=== PATIENT | male | born 1960 | race Hispanic/Latino ===

== ENCOUNTER 2019-09-07 14:13 | Inpatient (IN) | payer OTHER ==
--- NOTE | 2019-09-07 15:23 | ER ---
Nurse's Notes [facility] Name: Chuck Gregorio Age: 58 yrs Sex: Male : 1960 Arrival Date: 09/07/2019 Time: 14:18 Bed 19 Private MD: Diagnosis: SARS-associated coronavirus as the cause of diseases classified elsewhere Presentation: 09/06 14:32 Chief complaint: Patient states: SOB x 3 days. Tested positive for COVID-19 on ss Monday. Pt states, "I have no other symptoms than just SOB.". Coronavirus screen: Client presents with at least one sign or symptom that may indicate coronavirus-19. Client reports previous positive COVID test result. Ebola Screen: Patient denies exposure to infectious person. Patient denies travel to an Ebola-affected area in the 21 days before illness onset. Initial Sepsis Screen: Does the patient meet any 2 criteria? RR > 20 per min. HR > 90 bpm. Does the patient have a suspected source of infection? Yes: Productive cough/pneumonia. Risk Assessment: Do you want to hurt yourself or someone else? Patient reports no desire to harm self or others. Onset of symptoms was September 04, 2019. 14:32 Method Of Arrival: Ambulatory ss 14:32 Acuity: KIERRA 3 ss Historical: - Allergies: 14:34 No Known Allergies; ss - Immunization history:: Adult Immunizations up to date. - Social history:: Smoking status: Patient denies any tobacco usage or history of. Screenin:49 Abuse screen: Denies threats or abuse. Nutritional screening: No deficits noted. Tuberculosis screening: No symptoms or risk factors identified. Fall Risk None identified. Assessment: 15:50 General: Appears uncomfortable, Behavior is calm, cooperative, appropriate for age. Pain: Denies pain. Neuro: Level of Consciousness is awake, alert, obeys commands, Oriented to person, place, time, situation, Appropriate for age. Cardiovascular: Heart tones S1 S2 present Capillary refill < 3 seconds Patient's skin is warm and dry. Pulses are palpable in right radial artery and left radial artery Rhythm is sinus tachycardia. Respiratory: Reports shortness of breath on exertion cough that is productive, Airway is patent Respiratory effort is even, unlabored, Respiratory pattern is regular, tachypnea. GI: Patient currently denies nausea, vomiting. Derm: Skin is intact, is healthy with good turgor, Skin is dry. 15:55 Reassessment: Critical value received from lab: D-Dimer [id number], reported to . 16:38 Reassessment: Pt returned from radiology. 16:56 Reassessment: Attempted to call report, nurse is busy and will call back. 17:26 Reassessment: Report called to JESSE Peñaloza on 4th floor. Vital Signs: 14:32 BP 140 / 76; Pulse 108; Resp 22; Temp 97.5(O); Pulse Ox 92% on R/A; Weight 99.34 kg; Height 5 ft. 9 in. (175.26 cm); Pain 0/10; 15:30 BP 142 / 83; Pulse 114; Resp 23; Temp 101.9; Pulse Ox 97% ; ah 16:36 BP 145 / 81; Pulse 115; Resp 17; Pulse Ox 92% ; ah 17:29 BP 118 / 80; Pulse 105; Resp 20; Temp 100.3; Pulse Ox 93% ; 14:32 Body Mass Index 32.34 (99.34 kg, 175.26 cm) ED Course: 14:18 Patient arrived in ED. fj1 14:21 Tong Mckinley MD is Attending Physician. kdr 14:34 Triage completed. 14:34 Arm band placed on right wrist. 14:49 Melissa Paula, RN is Primary Nurse. 14:49 Patient has correct armband on for positive identification. Bed in low position. Call light in reach. Pulse ox on. NIBP on. 15:21 Lucio Hood DO is Hospitalizing Provider. kdr 15:25 Initial lab(s) drawn, by me, sent to lab. First set of blood cultures drawn by me, Flu ah and/or RSV swab sent to lab. Strep swab sent to lab. Inserted saline lock: 20 gauge in right antecubital area, using aseptic technique. 15:52 CXR XRAY In Process Unspecified. EDMS 16:25 Second set of blood cultures drawn by ny, EKG done, by ED staff, reviewed by Tong Mckinley MD. 17:32 No provider procedures requiring assistance completed. Patient admitted, IV remains in place. Administered Medications: 15:45 Drug: NS 0.9% 500 ml Route: IV; Rate: bolus; Site: right antecubital; 16:36 Follow up: Response: No adverse reaction; IV Status: Completed infusion 15:45 Drug: Decadron - Dexamethasone 6 mg Route: IVP; Site: right antecubital; 16:36 Follow up: Response: No adverse reaction 15:45 Drug: Tylenol 1000 mg Route: PO; 17:28 Follow up: Response: No adverse reaction; Temperature is decreased 16:10 Drug: Lovenox 1 mg/kg Route: Sub-Q; Site: left lower abdomen; 17:29 Follow up: Response: No adverse reaction Outcome: 15:22 Decision to Hospitalize by Provider. kdr 17:32 Admitted to Tele accompanied by tech, room 420, with chart, Report called to JESSE Peñaloza 17:32 Condition: stable 17:32 Instructed on the need for admit. 18:07 Patient left the ED. Signatures: Dispatcher [employer] EDTong Goodwin MD MD kdr Smirch, Shelby, Xavier Durán RN fj Melissa Paula, RN RN
--- NOTE | 2019-09-07 15:23 | EDPHYS ---
Physician Documentation [facility] Name: Chuck Gregorio Age: 58 yrs Sex: Male : 1960 Arrival Date: 09/07/2019 Time: 14:18 Bed 19 Private MD: ED Physician Tong Mckinley HPI: 09/06 15:22 This 58 yrs old Male presents to ER via Ambulatory with complaints of COVID+, kdr WORSENING SYMP. 15:22 The patient or guardian reports cough, that is intermittent, described as mild, with kdr productive sputum, that is white, difficulty breathing. Onset: The symptoms/episode began/occurred gradually, 3 day(s) ago. Severity of symptoms: At their worst the symptoms were mild, just prior to arrival, moderate, in the emergency department the symptoms are unchanged. Modifying factors: The symptoms are alleviated by Rest the symptoms are aggravated by exertion, talking. Associated signs and symptoms: Pertinent positives: fever, Pertinent negatives: chest pain, diarrhea, ear ache, nausea, rhinorrhea, sore throat, vomiting. The patient has not experienced similar symptoms in the past. The patient has been recently seen by a physician: Tested positive for COVID on Monday. Historical: - Allergies: 14:34 No Known Allergies; ss - Immunization history:: Adult Immunizations up to date. - Social history:: Smoking status: Patient denies any tobacco usage or history of. ROS: 15:22 Constitutional: Negative for fever, chills, and weight loss, Eyes: Negative for injury, kdr pain, redness, and discharge, ENT: Negative for injury, pain, and discharge, Neck: Negative for injury, pain, and swelling, Cardiovascular: Negative for chest pain, palpitations, and edema, Abdomen/GI: Negative for abdominal pain, nausea, vomiting, diarrhea, and constipation, Back: Negative for injury and pain, : Negative for injury, bleeding, discharge, and swelling, MS/Extremity: Negative for injury and deformity, Skin: Negative for injury, rash, and discoloration, Neuro: Negative for headache, weakness, numbness, tingling, and seizure activity. Psych: Negative for depression, anxiety, suicide ideation, homicidal ideation, and hallucinations, Allergy/Immunology: Negative for hives, rash, and allergies, Endocrine: Negative for neck swelling, polydipsia, polyuria, polyphagia, and marked weight changes, Hematologic/Lymphatic: Negative for swollen nodes, abnormal bleeding, and unusual bruising. 15:22 Respiratory: Positive for cough, with white sputum, dyspnea on exertion, shortness of breath, Negative for hemoptysis, orthopnea, pleurisy, wheezing. Exam: 15:22 Constitutional: This is a well developed, well nourished patient who is awake, alert, kdr and in no acute distress. Head/Face: Normocephalic, atraumatic. Eyes: Pupils equal round and reactive to light, extra-ocular motions intact. Lids and lashes normal. Conjunctiva and sclera are non-icteric and not injected. Cornea within normal limits. Periorbital areas with no swelling, redness, or edema. Neck: Trachea midline, no thyromegaly or masses palpated, and no cervical lymphadenopathy. Supple, full range of motion without nuchal rigidity, or vertebral point tenderness. No Meningismus. Chest/axilla: Normal chest wall appearance and motion. Nontender with no deformity. No lesions are appreciated. Cardiovascular: Regular rate and rhythm with a normal S1 and S2. No gallops, murmurs, or rubs. Normal PMI, no JVD. No pulse deficits. Respiratory: Lungs have equal breath sounds bilaterally, clear to auscultation and percussion. No rales, rhonchi or wheezes noted. No increased work of breathing, no retractions or nasal flaring. Abdomen/GI: Soft, non-tender, with normal bowel sounds. No distension or tympany. No guarding or rebound. No evidence of tenderness throughout. Back: No spinal tenderness. No costovertebral tenderness. Full range of motion. Skin: Warm, dry with normal turgor. Normal color with no rashes, no lesions, and no evidence of cellulitis. MS/ Extremity: Pulses equal, no cyanosis. Neurovascular intact. Full, normal range of motion. Neuro: Awake and alert, GCS 15, oriented to person, place, time, and situation. Cranial nerves II-XII grossly intact. Motor strength 5/5 in all extremities. Sensory grossly intact. Cerebellar exam normal. Normal gait. Psych: Awake, alert, with orientation to person, place and time. Behavior, mood, and affect are within normal limits. 16:36 ECG was reviewed by the Attending Physician. kdr Vital Signs: 14:32 BP 140 / 76; Pulse 108; Resp 22; Temp 97.5(O); Pulse Ox 92% on R/A; Weight 99.34 kg; ss Height 5 ft. 9 in. (175.26 cm); Pain 0/10; 15:30 BP 142 / 83; Pulse 114; Resp 23; Temp 101.9; Pulse Ox 97% ; ah 16:36 BP 145 / 81; Pulse 115; Resp 17; Pulse Ox 92% ; ah 17:29 BP 118 / 80; Pulse 105; Resp 20; Temp 100.3; Pulse Ox 93% ; ah 14:32 Body Mass Index 32.34 (99.34 kg, 175.26 cm) ss MDM: 15:22 Patient medically screened. kdr 15:22 Data reviewed: vital signs, nurses notes, lab test result(s), radiologic studies. kdr Counseling: I had a detailed discussion with the patient and/or guardian regarding: the historical points, exam findings, and any diagnostic results supporting the discharge/admit diagnosis, lab results, radiology results, the need for further work-up and treatment in the hospital. Physician consultation: Lucio Hood DO was called at 15:27, was contacted at 15:27, regarding admission, patient's condition, and will see patient in ED, immediately. 09/06 15:17 Order name: Blood Culture Adult (2) kdr 09/06 15:17 Order name: BMP; Complete Time: 16:25 kdr 09/06 15:17 Order name: C-Reactive Protein; Complete Time: 16:25 kdr 09/06 15:17 Order name: CBC with Diff; Complete Time: 16:25 kdr 09/06 15:17 Order name: COVID-19 kdr 09/06 15:17 Order name: D-Dimer; Complete Time: 16:25 kdr 09/06 15:17 Order name: Ferritin; Complete Time: 16:25 kdr 09/06 15:17 Order name: Flu; Complete Time: 16:25 kdr 09/06 15:17 Order name: Lactate; Complete Time: 16:25 kdr 09/06 15:17 Order name: LFT's; Complete Time: 16:25 kdr 09/06 15:17 Order name: Lipase; Complete Time: 16:25 kdr 09/06 15:17 Order name: Procalcitonin; Complete Time: 17:14 kdr 09/06 15:17 Order name: PT-INR; Complete Time: 16:25 kdr 09/06 15:17 Order name: Ptt, Activated; Complete Time: 16:25 kdr 09/06 14:56 Order name: Pulse Ox Sat: Ambulate patient around room while monitoring POx; Complete kdr Time: 15:48 09/06 15:17 Order name: Strep; Complete Time: 16:25 kdr 09/06 15:17 Order name: Troponin (emerg Dept Use Only); Complete Time: 16:25 kdr 09/06 15:17 Order name: CXR XRAY kdr 09/06 15:17 Order name: EKG; Complete Time: 15:18 kdr 09/06 15:17 Order name: Cardiac monitoring; Complete Time: 15:48 kdr 09/06 15:57 Order name: Chest For PE Angio CT [facility] 09/06 16:08 Order name: Throat Culture [facility] 09/06 16:54 Order name: Urine Dipstick--Ancillary (enter results) 09/06 17:05 Order name: Urine Dipstick-Ancillary; Complete Time: 17:14 [facility] 09/06 17:18 Order name: CT [facility] 09/06 15:17 Order name: Droplet/Contact Precautions; Complete Time: 15:48 kdr 09/06 15:17 Order name: EKG - Nurse/Tech; Complete Time: 16:52 [facility] 09/06 15:17 Order name: IV Start; Complete Time: 15:48 [facility] 09/06 15:17 Order name: Labs collected and sent; Complete Time: 15:48 [facility] 09/06 15:17 Order name: O2 Per Protocol; Complete Time: 15:48 [facility] 09/06 15:17 Order name: Urine Dipstick-Ancillary (obtain specimen); Complete Time: 16:52 kdr EC:36 Rate is 114 beats/min. Rhythm is regular, Sinus tachycardia with No ectopy. QRS [place] is kdr Normal. [place] interval is normal. QRS interval is normal. QT interval is normal. Clinical impression: Sinus tachycardia. Administered Medications: 15:45 Drug: NS 0.9% 500 ml Route: IV; Rate: bolus; Site: right antecubital; 16:36 Follow up: Response: No adverse reaction; IV Status: Completed infusion ah 15:45 Drug: Decadron - Dexamethasone 6 mg Route: IVP; Site: right antecubital; 16:36 Follow up: Response: No adverse reaction 15:45 Drug: Tylenol 1000 mg Route: PO; 17:28 Follow up: Response: No adverse reaction; Temperature is decreased 16:10 Drug: Lovenox 1 mg/kg Route: Sub-Q; Site: left lower abdomen; 17:29 Follow up: Response: No adverse reaction Disposition: 09/07/19 15:22 Hospitalization ordered by Lucio Hood for Observation. Preliminary diagnosis is SARS-associated coronavirus as the cause of diseases classified elsewhere. - Bed requested for Telemetry/MedSurg (observation). - Status is Observation. - Condition is Fair. - Problem is an ongoing problem. - Symptoms are unchanged. Signatures: Dispatcher [employer] Letty Liao RN RN Tong Mckinley MD MD [facility] Lakeshia Casas RN RN Melissa Paula RN RN Corrections: (The following items were deleted from the chart) 15:59 15:17 Notify Health Dept [phone]/ ordered. [facility] 16:22 15:22 Hospitalization Ordered by Lucio Hood DO for Observation. Preliminary diagnosis is SARS-associated coronavirus as the cause of diseases classified elsewhere. Bed requested for Telemetry/MedSurg (observation). Status is Observation. Condition is Fair. Problem is an ongoing problem. Symptoms are unchanged. [facility] 16:37 15:17 Document PUI# ordered. [facility] 18:07 16:22 09/07/2019 15:22 Hospitalization Ordered by Lucio Hood DO for Observation. Preliminary diagnosis is SARS-associated coronavirus as the cause of diseases classified elsewhere. Bed requested for Telemetry/MedSurg (observation). Status is Observation. Condition is Fair. Problem is an ongoing problem. Symptoms are unchanged. dw
[2019-09-07] MEDS ORDERED: dexAMETHasone 10 MG/ML VIAL ONE (15:33)
[2019-09-07] MEDS ORDERED: NA CHLORIDE 0.9% 500 ML ONE (15:33)
[2019-09-07] MEDS ORDERED: ACETAMINOPHEN 500 MG TAB ONE (15:47)
[2019-09-07 15:49] LABS: Basophils % 1.3 % (0-1.3); Hematocrit 41.6 % (39.6-49.0); Lymphocytes % 10.8 % (15.3-44.8); MPV 7.1 fL (7.6-11.3); RBC Red Blood Cell Count 4.84 M/uL (4.33-5.43)
[2019-09-07 15:51] LABS: Protime INR 1.31
[2019-09-07] MEDS ORDERED: ENOXAPARIN 100 MG/ML SYR SQ ONE (16:09)
[2019-09-07 16:11] LABS: ALT/SGPT 71 U/L (12-78); AST/SGOT 58 U/L (15-37); Albumin 2.8 g/dL (3.4-5.0); Alkaline Phosphatase 77 U/L (45-117); BUN Blood Urea Nitrogen 14 mg/dL (7-18); Bicarbonate 30 mmol/L (21-32); Bilirubin Direct 0.2 mg/dL (0-0.2); Bilirubin Total 0.4 mg/dL (0.2-1.0); Ferritin 907.9 ng/mL (26-388); Glucose Level 115 mg/dL (74-106); Lipase 154 U/L (73-393); Potassium 3.3 mmol/L (3.5-5.1); Protein, Total 7.7 g/dL (6.4-8.2); Sodium Level 139 mmol/L (136-145); Troponin (Emerg Dept Use Only) < 0.02 ng/mL (0.0-0.045)
[2019-09-07 17:05] LABS: Urine Blood NEGATIVE (NEG); Urine Glucose NEGATIVE (NEG); Urine Protein 2+ (NEG); Urine Specific Gravity 1.015 (1.005-1.030)
--- NOTE | 2019-09-07 17:11 | P.HP ---
Certification for Inpatient Patient admitted to: Observation With expected LOS: <2 Midnights Patient will require the following post-hospital care: None Practitioner: I am a practitioner with admitting privileges, knowledge of patient current condition, hospital course, and medical plan of care. Services: Services provided to patient in accordance with Admission requirements found in Title 42 Section 412.3 of the Code of Federal Regulations Patient History Date of Service: 09/07/19 Primary Care Provider: [place] Reason for admission: Shortness of breath History of Present Illness: 58-year-old male with history of hypertension presented to the emergency room with increasing shortness of breath. Patient was diagnosed with COVID 19 this past Monday. Patient had reported some sore throat. He also reported a severe headache. He had gone to a urgent care clinic in [place]. He got results testing positive. Over the last day he has been having increasing shortness of breath. Patient also reports no subjective fever. He denies any nausea, vomiting, diarrhea or constipation. Only sick contacts has primarily been his coworkers. He travels a great deal from [facility]. He currently works in the local area. He has been practicing social distancing and wears masks. No family member has been test positive. Several coworkers have tested positive for COVID. He came to the ER due to worsening symptoms. In the ER patient was found to be tachycardic and tachypneic. Room-air satura tions 94% but decreased to around 80% with exertion. Patient was given IV Decadron and IV fluid in the emergency room. Chest x-ray revealed bilateral pneumonia suspicious for COVID 19. Patient admitted for further evaluation and treatment. When I saw the patient ER, patient appeared slightly tachypneic and tachycardic. Patient reports slight improvement with treatment in the emergency room. Patient does not appear septic at this time. Home medications list reviewed: Yes - Past Medical/Surgical History Diabetic: No -: Hypertension -: Cholecystectomy Psychosocial/ Personal History: Patient lives in [facility] but works locally - Family History Family History: Reviewed- Non-Contributory - Social History Smoking Status: Never smoker Alcohol use: No CD- Drugs: No Caffeine use: Yes Place of Residence: Home Review of Systems General: Weakness, As per HPI Eyes: Unremarkable ENT: Nose Congestion, Throat Pain, As per HPI Respiratory: Shortness of Breath, SOB with Excertion, As per HPI Cardiovascular: Unremarkable Gastrointestinal: Unremarkable Genitourinary: Unremarkable Musculoskeletal: Unremarkable Integumentary: Unremarkable Neurological: Unremarkable Lymphatics: Unremarkable Physical Examination - Physical Exam General: Alert, In no apparent distress, Oriented x3, Oriented x1 HEENT: Atraumatic Neck: Supple Respiratory: Crackles/rales (Crackles to the bases bilateral) Cardiovascular: Abnormal pulses (Sinus tachycardia) Gastrointestinal: Normal bowel sounds, Non-distended, No tenderness, No masses, No rebound, No guarding Musculoskeletal: No erythema, No tenderness, No warmth Integumentary: No tenderness/swelling, No erythema, No warmth, No cyanosis Neurological: Normal speech, Normal strength at 5/5 x4 extr, Normal tone, Normal affect - Studies Laboratory Data (last 24 hrs) 09/07/19 15:25: PT 15.4 H, INR 1.31, APTT 32.3 09/07/19 15:25: WBC 8.8, Hgb 14.0, Hct 41.6, Plt Count 365 09/07/19 15:25: Sodium 139, Potassium 3.3 L, BUN 14, Creatinine 0.90, Glucose 115 H, Total Bilirubin 0.4, AST 58 H, ALT 71, Alkaline Phosphatase 77, Lipase 154 Microbiology Data (last 24 hrs): 09/07/19 15:35 Nasopharnyx Influenza Type A Antigen Screen - Final 09/07/19 15:35 Nasopharnyx Influenza Type B Antigen Screen - Final 09/07/19 15:35 Throat Group A Streptococcus Rapid Screen - Final Assessment and Plan - Plan Impression: Dyspnea secondary to bilateral COVID 19 pneumonia with exertional hypoxia Hypertension Plan: Dyspnea secondary to bilateral COVID 19 pneumonia with exertional hypoxia: Patient will be admitted for further evaluation and treatment. Patient given IV Decadron in the emergency room. Care discussed in detail with patient. Will recommend IV steroids, oxygen to maintain sats above 93%, vitamin supplementation and DVT prophylaxis. This was discussed in detail with the patient. Patient agrees with plan of care at this time. Will consult respiratory to help wean off oxygen. Will also consult pulmonology for further recommendation. Will provide incentive spirometer. With significant improvement possible discharge tomorrow. Will continue to reassess. Patient may require home oxygen at discharge. Hypertension: Restart lisinopril Discharge Plan: Home Plan to discharge in: 24 Hours - Advance Directives Does patient have a Living Will: No Does patient have a Durable POA for Healthcare: No - Code Status/Comfort Care Code Status Assessed: Yes (Patient is full code) Time Spent Managing Pts Care (In Minutes): 55
--- NOTE | 2019-09-07 17:15 | RAD REPORT ---
EXAM DESCRIPTION: RAD - Chest Single View - 09/07/2019 3:52 pm CLINICAL HISTORY: SOB Chest pain. COMPARISON: Chest For Pe Angio dated 09/07/2019 FINDINGS: Portable technique limits examination quality. Moderate bilateral pulmonary opacities are present, greater on the right, most compatible with pneumo dave. The heart is upper limit of normal in size. No evidence of pneumothorax. No displaced fractures.
--- NOTE | 2019-09-07 17:17 | RAD REPORT ---
EXAM DESCRIPTION: CT - Chest For Pe Angio - 09/07/2019 5:04 pm CLINICAL HISTORY: Chest pain. Cough;SOB COMPARISON: No comparisons TECHNIQUE: CT angiogram of the pulmonary arteries was performed with MIP. All CT scans are performed using dose optimization technique as appropriate and may include automated exposure control or mA/KV adjustment according to patient size. FINDINGS: Respiratory motion artifact limits quality assessment for pulmonary embolism. No proximal pulmonary embolism is suspected. Distal branch assessment is limited. No acute aortic finding demonstrated. Extensive bilateral airspace opacities are present greatest in the lung bases compatible pneumonia. No significant pericardial or pleural fluid. No concerning bony finding. IMPRESSION: No evidence of proximal pulmonary thromboembolism. Distal branch assessment is quite mark ited due to respiratory motion artifact. Severe bilateral consolidations, greatest lung bases, likely indicating pneumonia.
[2019-09-07] MEDS ORDERED: ONDANSETRON 4 MG/2 ML VIAL IV PRN (18:18)
[2019-09-07] MEDS ORDERED: ACETAMINOPHEN 500 MG TAB PO PRN (18:18)
[2019-09-07] MEDS: FAMOTIDINE 20 MG/2 ML VIAL IV SCH (19:36)
[2019-09-07] MEDS: ASCORBIC ACID 500 MG TABLET PO SCH (19:36)
[2019-09-07] MEDS: ZINC SULFATE 220 MG CAP PO SCH (19:36)
[2019-09-07] MEDS: THIAMINE HCL 100 MG TABLET PO SCH (19:36)
[2019-09-07 21:50] VITALS: BMI 33.9
[2019-09-07] MEDS ORDERED: POTASSIUM CL SA 10 MEQ TAB PO ONE (22:00)
[2019-09-07] MEDS: METHYLPREDNISOLONE 40 MG INJ IV SCH (23:21)
[2019-09-08 04:43] LABS: Ferritin 792.8 ng/mL (26-388)
[2019-09-08] MEDS: METHYLPREDNISOLONE 40 MG INJ IV SCH ×3 (05:09→20:51)
[2019-09-08 06:02] LABS: Potassium 4.9 mmol/L (3.5-5.1)
[2019-09-08] MEDS: ENOXAPARIN 40 MG/0.4 ML SQ SCH (08:10)
[2019-09-08] MEDS: lisinopriL 10 MG TAB PO SCH (08:11)
[2019-09-08] MEDS: ASCORBIC ACID 500 MG TABLET PO SCH (08:11)
[2019-09-08] MEDS: FAMOTIDINE 20 MG/2 ML VIAL IV SCH ×2 (08:11→20:51)
[2019-09-08] MEDS: THIAMINE HCL 100 MG TABLET PO SCH ×2 (08:17→09:09)
[2019-09-08] MEDS: ZINC SULFATE 220 MG CAP PO SCH (08:17)
[2019-09-08] MEDS: VITAMIN D 1000 UNIT TAB PO SCH (09:00)
[2019-09-08] MEDS ORDERED: ASCORBIC ACID 500 MG TABLET PO SCH (09:00)
[2019-09-08] MEDS: FUROSEMIDE 20 MG TABLET PO SCH (09:10)
--- NOTE | 2019-09-08 10:33 | P.CNS ---
Date of Consult: 09/08/19 Primary Care Provider: DEEPAK Aden Chief Complaint: Shortness of breath History of Present Illness: Patient is 58 years of age with a history of hypertension admitted with worsening dyspnea tested positive for post virus he came to the emergency room because of shortness of breath doing much better patient is from [facility] Allergies No Known Allergies Allergy (Verified 09/07/19 21:19) Home Medications: Lisinopril [Zestril] 10 mg PO DAILY 09/07/19 - Past Medical/Surgical History Diabetic: No -: Hypertension -: Cholecystectomy Psychosocial/ Personal History: Patient lives in [facility] but works locally - Social History Alcohol use: No CD- Drugs: No Caffeine use: Yes Place of Residence: Home Review of Systems General: Weakness Respiratory: Shortness of Breath Physical Examination Temp Pulse Resp BP Pulse Ox 98.7 F 106 H 21 H 130/80 89 L 09/08/19 08:00 09/08/19 09:10 09/08/19 08:00 09/08/19 09:10 09/08/19 08:00 Laboratory Data (last 24 hrs) 09/07/19 15:25: PT 15.4 H, INR 1.31, APTT 32.3 09/07/19 15:25: WBC 8.8, Hgb 14.0, Hct 41.6, Plt Count 365 09/07/19 15:25: Sodium 139, Potassium 3.3 L, BUN 14, Creatinine 0.90, Glucose 115 H, Total Bilirubin 0.4, AST 58 H, ALT 71, Alkaline Phosphatase 77, Lipase 154 - Problems (1) Coronavirus infection Current Visit: Yes Status: Acute Plan: Patient is 58 years of age admitted with worsening dyspnea he has been tested positive for post virus doing much better saturation is 89% on room air may qualify for home O2 CRP level is still significantly elevated escalate the dose of steroids as oxygenation may improve by tomorrow the not need oxygen CT scan consistent with post virus infection need to be discharged home on some prednisone low-dose anticoagulation will follow with a telephone visit in my office in a week as plan to go back to a [place]
--- NOTE | 2019-09-08 13:58 | P.PN ---
Subjective Date of Service: 09/08/19 Primary Care Provider: Paia TN Chief Complaint: Shortness of breath Subjective: Improving Physical Examination - Vital Signs Temperature: 98.3 F Blood Pressure: 146/92 Pulse: 112 Respirations: 19 Pulse Ox (%): 90 - Physical Exam General: Alert HEENT: Atraumatic Neck: Supple Respiratory: Other (Patient breathing much improved. Shortness of breath resolved) Cardiovascular: Normal pulses, Regular rate/rhythm Neurological: Normal speech, Normal strength at 5/5 x4 extr, Normal tone, Normal affect - Studies Laboratory Data (last 24 hrs) 09/08/19 03:52: Potassium 4.9 09/07/19 15:25: PT 15.4 H, INR 1.31, APTT 32.3 09/07/19 15:25: WBC 8.8, Hgb 14.0, Hct 41.6, Plt Count 365 09/07/19 15:25: Sodium 139, Potassium 3.3 L, BUN 14, Creatinine 0.90, Glucose 115 H, Total Bilirubin 0.4, AST 58 H, ALT 71, Alkaline Phosphatase 77, Lipase 154 Microbiology Data (last 24 hrs): 09/07/19 15:35 Nasopharnyx Influenza Type A Antigen Screen - Final 09/07/19 15:35 Nasopharnyx Influenza Type B Antigen Screen - Final 09/07/19 15:35 Throat Group A Streptococcus Rapid Screen - Final Medications List Reviewed: Yes Assessment & Plan Discharge Plan: Home Plan to discharge in: 24 Hours Physician Review Additional Text: Impression: Dyspnea secondary to bilateral COVID 19 pneumonia with exertional hypoxia Hypertension Plan: Dyspnea secondary to bilateral COVID 19 pneumonia with exertional hypoxia: Patient appears much improved. Patient had some desaturations with exertion. Room-air saturations when still was in the normal range. Case discussed with pulmonology. Pulmonology has increased IV steroids. Patient on DVT prophylaxis. Continue vitamin supplementation. Continue to wean off oxygen. Will reassess again tomorrow in the a.m. for oxygen requirement. Patient may require home oxygen at discharge. Will consult drug abuse social worker to help with this. Patient can follow up with pulmonology as an outpatient. Patient plans to go back to [facility] after discharge. Continue with incentive spirometer. Encourage ambulation. I will turn the service over to the hospitalist team tomorrow. I will go over plan of care with him. Hypertension: Continue lisinopril Time Spent Managing Pts Care (In Minutes): 55
[2019-09-08] MEDS: MELATONIN 3 MG TABLET PO SCH (20:50)
[2019-09-09] MEDS: ZINC SULFATE 220 MG CAP PO SCH (08:22)
[2019-09-09] MEDS: lisinopriL 10 MG TAB PO SCH (08:22)
[2019-09-09] MEDS: ENOXAPARIN 40 MG/0.4 ML SQ SCH (08:22)
[2019-09-09] MEDS: METHYLPREDNISOLONE 40 MG INJ IV SCH ×2 (08:23→21:22)
[2019-09-09] MEDS: THIAMINE HCL 100 MG TABLET PO SCH (08:24)
[2019-09-09] MEDS: FAMOTIDINE 20 MG/2 ML VIAL IV SCH ×2 (08:24→21:22)
[2019-09-09] MEDS: ASCORBIC ACID 500 MG TABLET PO SCH (08:24)
[2019-09-09] MEDS: VITAMIN D 1000 UNIT TAB PO SCH (08:24)
[2019-09-09] MEDS: FUROSEMIDE 20 MG TABLET PO SCH (08:25)
--- NOTE | 2019-09-09 09:42 | P.PN ---
Subjective Date of Service: 09/09/19 Primary Care Provider: DEEPAK Aden Chief Complaint: Shortness of breath Subjective: Improving Review of Systems 10-point ROS is otherwise unremarkable Respiratory: Shortness of Breath Physical Examination - Vital Signs Temperature: 97.9 F Blood Pressure: 129/86 Pulse: 104 Respirations: 20 Pulse Ox (%): 91 - Physical Exam General: Alert, In no apparent distress, Oriented x3 HEENT: Atraumatic, Normocephalic Neck: Supple Respiratory: Diminished Cardiovascular: No edema, Normal pulses Capillary refill: <2 Seconds Gastrointestinal: Normal bowel sounds, Soft and benign Musculoskeletal: No contractures, No erythema, No tenderness Integumentary: No tenderness/swelling, No erythema Neurological: Normal gait, Normal speech, Normal strength at 5/5 x4 extr, Normal tone - Studies Medications List Reviewed: Yes Assessment & Plan Discharge Plan: Home Plan to discharge in: 24 Hours Physician Review Additional Text: Impression: Dyspnea secondary to bilateral COVID 19 pneumonia with exertional hypoxia Hypertension Plan: Dyspnea secondary to bilateral COVID 19 pneumonia with exertional hypoxia: Patient appears much improved. He is still requiring oxygen. Patient this morning had increased demand for oxygen and is currently on 5 L per nasal cannula saturating in the high 80s to low 90s. Patient clinically looks very good. Hopefully this will improve and patient can be discharged tomorrow. Will continue to monitor closely. Otherwise continue with steroid therapy. Hypertension: Continue lisinopril Critical Care: No Time Spent Managing Pts Care (In Minutes): 55
[2019-09-09] MEDS ORDERED: METHYLPREDNISOLONE 125 MG INJ IV ONE (12:40)
--- NOTE | 2019-09-09 12:41 | P.PN ---
Subjective Date of Service: 09/09/19 Primary Care Provider: DEEPAK Aden Chief Complaint: Iyer virus pneumonia Subjective: Improving (Patient is improving still has dyspnea on exertion CRP level is declining acquiring file L of oxygen) Review of Systems Respiratory: Shortness of Breath Physical Examination - Vital Signs Temperature: 97.9 F Blood Pressure: 129/86 Pulse: 104 Respirations: 20 Pulse Ox (%): 91 - Studies Microbiology Data (last 24 hrs): 09/07/19 15:35 Throat Culture & Sensitivity - Final NORMAL UPPER RESPIRATORY LUNA GROWN. Medications List Reviewed: Yes Assessment & Plan - Problems (Diagnosis) (1) Coronavirus infection Current Visit: Yes Status: Acute Plan: Patient admitted with respiratory failure from iyer virus infection he is improving CRP has declined to 101 continue with high doses of steroids possible discharge tomorrow
[2019-09-09] MEDS: MELATONIN 3 MG TABLET PO SCH (21:23)
[2019-09-10 04:10] LABS: Basophils % 0.2 % (0-1.3); Hematocrit 37.4 % (39.6-49.0); Lymphocytes % 8.5 % (15.3-44.8); MPV 7.3 fL (7.6-11.3); RBC Red Blood Cell Count 4.33 M/uL (4.33-5.43)
[2019-09-10 04:34] LABS: BUN Blood Urea Nitrogen 28 mg/dL (7-18); Bicarbonate 31 mmol/L (21-32); Glucose Level 156 mg/dL (74-106); Sodium Level 142 mmol/L (136-145)
[2019-09-10 08:04] LABS: Blood Morphology Comment NOT SEEN (NOT SEEN); Platelet Estimate INCR
[2019-09-10] MEDS: VITAMIN D 1000 UNIT TAB PO SCH (09:00)
--- NOTE | 2019-09-10 09:10 | P.DS ---
Admission Date: 09/08/19 Discharge Date: 09/10/19 Primary Care Provider: DEEPAK Aden Disposition: ROUTINE DISCHARGE Discharge Condition: FAIR Reason for Admission: Iyer virus pneumonia Consultations: Pulmonology- Dr. Tatum Procedures: CT scan chest FINDINGS: Respiratory motion artifact limits quality assessment for pulmonary embolism. No proximal pulmonary embolism is suspected. Distal branch assessment is limited. No acute aortic finding demonstrated. Extensive bilateral airspace opacities are present greatest in the lung bases compatible pneumonia. No significant pericardial or pleural fluid. No concerning bony finding. IMPRESSION: No evidence of proximal pulmonary thromboembolism. Distal branch assessment is quite limited due to respiratory motion artifact. Severe bilateral consolidations, greatest lung bases, likely indicating pneumonia. Chest x-ray FINDINGS: Portable technique limits examination quality. Moderate bilateral pulmonary opacities are present, greater on the right, most compatible with pneumonia. The heart is upper limit of normal in size. No evidence of pneumothorax. No displaced fractures. Medical problem list COVID pneumonia with hypoxia Hypertension Brief History of Present Illness: 58-year-old male with history of hypertension was admitted for hypoxia and COVID pneumonia. Hospital Course: 58-year-old male with history of hypertension was admitted for hypoxia secondary to COVID pneumonia. Patient did well during the hospitalization with IV steroids. Patient only required nasal cannula oxygen therapy during this hospitalization, patient was followed by a chronic care nurse who believes he is stable for discharge at this time. Currently patient is saturating around 93% on 4 L per nasal cannula. Patient looks great clinically, no tachypneic, no dyspnea. Patient states he is feeling much better. Patient to be discharged with home oxygen prescribed at 4 L in addition to prednisone 20 mg p.o. b.i.d. for 7 days followed by prednisone 10 mg p.o. b.i.d. for 7 days. Patient need to follow up with his primary care doctor. Arrangements will be made for home oxygen prior to discharge. At discharge patient can continue with his lisinopril for hypertension. Further adjustments as medication can be made by primary care doctor. Vital Signs/Physical Exam: Temp Pulse Resp BP Pulse Ox 97.7 F 70 20 127/88 92 09/10/19 04:00 09/10/19 04:00 09/10/19 04:00 09/10/19 04:00 09/10/19 04:00 General: Alert, In no apparent distress HEENT: Atraumatic, PERRLA, EOMI Neck: Supple, JVD not distended Respiratory: Normal air movement, Diminished Cardiovascular: Regular rate/rhythm, Normal S1 S2 Gastrointestinal: Normal bowel sounds, No tenderness Musculoskeletal: No tenderness Integumentary: No rashes Neurological: Normal speech, Normal tone, Normal affect Lymphatics: No axilla or inguinal lymphadenopathy Laboratory Data at Discharge: WBC 12.2 K/uL (4.3-10.9) H D 09/10/19 03:24 Hgb 12.5 g/dL (13.6-17.9) L 09/10/19 03:24 Hct 37.4 % (39.6-49.0) L 09/10/19 03:24 Plt Count 486 K/uL (152-406) H D 09/10/19 03:24 PT 15.4 SECONDS (9.5-12.5) H 09/07/19 15:25 INR 1.31 09/07/19 15:25 APTT 32.3 SECONDS (24.3-36.9) 09/07/19 15:25 Sodium 142 mmol/L (136-145) 09/10/19 03:24 Potassium 5.0 mmol/L (3.5-5.1) 09/10/19 03:24 BUN 28 mg/dL (7-18) H 09/10/19 03:24 Creatinine 0.86 mg/dL (0.55-1.3) 09/10/19 03:24 Glucose 156 mg/dL (74-106) H 09/10/19 03:24 Total Bilirubin 0.4 mg/dL (0.2-1.0) 09/07/19 15:25 AST 58 U/L (15-37) H 09/07/19 15:25 ALT 71 U/L (12-78) 09/07/19 15:25 Alkaline Phosphatase 77 U/L (45-117) 09/07/19 15:25 Lipase 154 U/L (73-393) 09/07/19 15:25 Home Medications: Lisinopril [Zestril] 10 mg PO DAILY 09/07/19 predniSONE [Deltasone*] 10 mg PO SEECOM #42 tab 09/10/19 New Medications: predniSONE [Deltasone*] 10 mg PO SEECOM #42 tab Patient Discharge Instructions: 1. You need to follow up with her primary care doctor within 1 week to follow up this hospitalization. 2. You also need to follow up with a chronic care nurse within next 1 week followup this hospitalization and further adjust oxygen therapy. 3. Review symptoms get significantly worse need to immediately return to hospital for further evaluation. 4.58-year-old male with history of hypertension was admitted for hypoxia secondary to COVID pneumonia. Patient did well during the hospitalization with IV steroids. Patient only required nasal cannula oxygen therapy during this hospitalization, patient was followed by a chronic care nurse who believes he is stable for discharge at this time. Currently patient is saturating around 93% on 4 L per nasal cannula. Patient looks great clinically, no tachypneic, no dy spnea. Patient states he is feeling much better. Patient to be discharged with home oxygen prescribed at 4 L in addition to prednisone 20 mg p.o. b.i.d. for 7 days followed by prednisone 10 mg p.o. b.i.d. for 7 days. Patient need to follow up with his primary care doctor. Arrangements will be made for home oxygen prior to discharge. At discharge patient can continue with his lisinopril for hypertension. Further adjustments as medication can be made by primary care doctor. Diet: Regular Activity: Ad marin Time spent managing pt's care (in minutes): 55
[2019-09-10] MEDS: THIAMINE HCL 100 MG TABLET PO SCH (09:13)
[2019-09-10] MEDS: ASCORBIC ACID 500 MG TABLET PO SCH (09:13)
[2019-09-10] MEDS: ZINC SULFATE 220 MG CAP PO SCH (09:14)
[2019-09-10] MEDS: FAMOTIDINE 20 MG/2 ML VIAL IV SCH (09:14)
[2019-09-10] MEDS: FUROSEMIDE 20 MG TABLET PO SCH (09:14)
[2019-09-10] MEDS: lisinopriL 10 MG TAB PO SCH (09:15)
[2019-09-10] MEDS: ENOXAPARIN 40 MG/0.4 ML SQ SCH (09:15)
[2019-09-10] MEDS: METHYLPREDNISOLONE 40 MG INJ IV SCH (09:17)
[2019-09-10 16:09] VITALS: O2SAT 96
[2019-09-10 16:44] VITALS: BP 149/95; TEMP 98.8
[2019-09-10] MEDS ORDERED: METHYLPREDNISOLONE 125 MG INJ IV SCH (21:00)
== END 2019-09-10 19:53 | disposition home or self-care (01) | DRG 177 ==
LOC: ER 14:13 → ERHOLD 16:06 → 4TH 17:49 → OBSVTOIN 09-08 11:34
PROVIDERS: ADMIT Family Medicine; ATTEND Family Medicine
DX: U07.1 COVID-19 (principal); J12.89 Other viral pneumonia; J96.01 Acute respiratory failure with hypoxia; I10 Essential (primary) hypertension; Z79.899 Other long term (current) drug therapy; Z90.49 Acquired absence of other specified parts of digestive tract
CPT/HCPCS: 36415; 71045; 71275; 80048; 80076; 81003; 82728; 83605; 83690; 84132; 84145; 84484; 85025; 85379; 85610; 85730; 86140; 87040; 87070; 87081; 87804; 93005; 96361; 96372; 96374; 99285; G0378; J1100; J1650; J2920; J2930; J7040; Q9967